=== PATIENT | male | born 2000 | race Hispanic/Latino ===

== ENCOUNTER → 2021-12-18 | Outpatient (CLI) | payer OTHER | LOC: CT 08:41 | PROVIDERS: ATTEND Family Medicine | DX: S83.511D Sprain of anterior cruciate ligament of right knee, subsequent encounter (principal) ==

== ENCOUNTER → 2021-12-24 | Outpatient (CLI) | payer OTHER | LOC: MRI 07:18 | PROVIDERS: ATTEND Family Medicine | DX: S83.511D Sprain of anterior cruciate ligament of right knee, subsequent encounter (principal) ==